=== PATIENT | female | born 1980 | race Caucasian/White ===

== ENCOUNTER 2024-04-30 11:48 | Outpatient (AMB) | payer MEDICAID, SELFPAY ==
[2024-04-30 11:56] VITALS: BP 125/88; PULSE 98; RESP 18; TEMP 36.7; BMI 31.6
--- NOTE | 2024-04-30 11:56 | ORTHONT_ITS ---
Vital signs 04/30/24 11:56 Height 1.7 m Height Method Stated Weight 91.399 kg Weight Measurement Method Standing Scale BMI 31.6 BP 125/88 H Blood Pressure Source Automatic Cuff Blood Pressure Location Right Upper Arm Position Sitting Respiration 18 Pulse 98 Pulse Source Monitor Temp 98.1 F Temp Source Temporal Artery Scan Med/Allergies Allergies & Medications Allergies No Known Allergies Allergy (Verified 04/30/24 12:00) Medication Reconciliation gabapentin 100 mg capsule 100 mg PO QDAY 07/25/23 [History Confirmed 04/30/24] meloxicam 15 mg tablet 15 mg PO QDAY 07/25/23 [History Confirmed 04/30/24] metformin 500 mg tablet 500 mg PO QDAY 07/25/23 [History Confirmed 04/30/24] diclofenac sodium 1 % topical gel 4 g topical QID #100 grams 08/01/23 [Rx Confirmed 04/30/24] Subjective Visit Visit for: follow up visit, knee (BILATERAL) and injections Immunization / Flu Flu Vaccine in the Last 12 Months: No Flu Vaccine Exclusion Criteria: Refused by Patient History of Present Illness Chief complaint: BILATERAL KNEE INJECTION/FOLLOW UP Carolyn is a pleasant 43-year-old female with left knee pain. She has had knee pain for quite a while in both knees with the left being worse than the right. She did have a history of a femur fracture on the left side. She does have a chronic medial meniscus tear as well. He was found to have osteoarthritis and was sent here for evaluation of a partial knee replacement. She does have pain diffusely on both knees. She did well with her last injections. She does not want new injections today Personal History Occupation: shift supervisor film processing Hobbies: working out Red flag PMH: smoker (NON-SMOKER) Pain Pain level (0-10): 6 Pain duration: ALL DAY Pain location: inside (medial), outside (lateral), anterior and posterior Pain quality: sharp and aching Pain timing: night and increases with activity Associated signs & symptoms: weakness Ambulatory data Ambulatory device: none Treatments Number of previous injections: 2 Improvement with previous injections: Yes Improvement with PT: No Improvement with NSAIDS: no Review of Systems Review of Systems: All systems negative unless otherwise noted in HPI. Exam Exam Patient is in no acute distress and is cooperative with the examination today. Breathing is nonlabored. In no respiratory distress. Bilateral extremities were evaluated and demonstrates sensation intact to light touch. Palpable pedal pulses are present. No significant edema is present. Bilateral hips were examined. The patient has no pain with log roll of the hips. Internal rotation to 30 degrees and external rotation to 30 degrees is painless. Negative FADIR. The left knee was examined. The left knee is in [varus] alignment. Range of motion from [0-115] degrees. Knee is stable to varus and valgus as well as AP translation with <5mm. Patient has a [negative] McMurrays. There is [no] pain with patellofemoral compression and [no] crepitus noted. The knee is [tender] to palpation [medially]. The right knee was also examined. The right knee is in [varus] alignment. Range of motion from [0-120] degrees. Knee is stable to varus and valgus as well as AP translation with <5mm. Patient has a [negative] McMurrays. There is [no] pain with patellofemoral compression and [no] crepitus noted. The knee is [tender] to palpation [medially] And laterally Xrays demonstrate severe osteoarthritis and complete obliteration medial joint space Assessment and Plan Problem List (1) Bilateral primary osteoarthritis of knee: Status: Acute Plan: Patient is a pleasant 43-year-old female with posttraumatic arthritis of the left knee and also severe osteoarthritis on the right. Recommend knee cortisone injections as patient would like to proceed with conservative treatment at this time. The risks and benefits of the procedure were reviewed with the patient and patient gave verbal consent to continue with the procedure. Procedure: performed by Dr. Stanton Using sterile technique the Bilateral knees were thoroughly prepped with alcohol, and approximately 1 cc of Kenalog 40 mg/mL and 4 cc of 1% lidocaine was injected into each knee without resistance into the medial tibial femoral joint space. The patient tolerated the procedure. (2) Bilateral knee pain: Status: Acute Office Procedures GNS Level of Care Nursing/Assessment Patient Status: Established Patient Nursing Assessment/Reassesment: Medication Reconciliation, Update PMH in EMR and Vital Signs Coordination of Care: Complex Care and Chronic Disease 1-5, Education Complex Pt/Fam, Consent,records obtained, informed consent, 1 Ins Authorization, Results/Orders obtained and Staff clarify orders Established Patient Charge Established Patient Point Assignment: 110 Established Patient Point Charge: EP Level 3 (80-115) Surgical Proc/IM SQ injection Major Surgical Procedure: Yes (BILATERAL KNEE INJECTION) Medication Given Medication Given Medication Given: Yes Documented Dose Given: 8 Route: Infiitration Medication Given Medication Given Medication Given: Yes Documented Dose Given: 2 Route: Infiitration Office Meds Xylocaine 10 mg/mL (1 %) injection solution Performing Provider: Elver Stanton MD Performing Location: [facility] Administered by: Elver Stanton MD on 04/30/24 12:07 Dose Route Admin Location Dispensed Lot Number Expiration Date [facility] [employer] 40 mL Infiltration 40 mL [id number] 02/26/27 46621-420-17 [facility] triamcinolone acetonide 40 mg/mL suspension for injection Performing Provider: Elver Stanton MD Performing Location: [facility] Administered by: Elver Stanton MD on 04/30/24 12:07 Dose Route Admin Location Dispensed Lot Number Expiration Date [facility] [employer] 80 mg Infiltration 2 mL [id number] 01/26/26 [address]-9 [employer] Past Medical History Past Medical History Have you ever been diagnosed with any of the following: Respiratory Problems Smoking: No Smoking Exposure: No
== END 2024-04-30 12:07 | disposition home or self-care (01) ==
LOC: HODSRG 11:48
PROVIDERS: PCP Registered Nurse; Referring Provider Registered Nurse; Supervising Provider Orthopaedic Surgery Adult Reconstructive Orthopaedic Surgery; Visit Provider Orthopaedic Surgery Adult Reconstructive Orthopaedic Surgery
DX: M17.0 Bilateral primary osteoarthritis of knee (principal); M25.561 Pain in right knee; M25.562 Pain in left knee
CPT/HCPCS: 20610; 99213; J3301; J3490; G0463

== ENCOUNTER 2024-10-28 09:29 | Outpatient (AMB) | payer MEDICAID, SELFPAY ==
[2024-10-28 09:46] VITALS: BP 115/82; PULSE 85; RESP 18; TEMP 36.3; O2SAT 94; BMI 28.1
--- NOTE | 2024-10-28 09:46 | PD.ORTHCLVIS ---
Vital signs 10/28/24 09:46 Height 1.7 m Height Method Stated Weight 81.335 kg Weight Measurement Method Standing Scale BMI 28.1 BP 115/82 Blood Pressure Source Automatic Cuff Blood Pressure Location Left Upper Arm Position Sitting Respiration 18 Pulse 85 Pulse Source Monitor Temp 97.4 F Temp Source Temporal Artery Scan Pulse Oximetry (%) 94 L Oxygen Delivery Method Room Air Med/Allergies Allergies & Medications Allergies No Known Allergies Allergy (Verified 10/28/24 09:47) Medication Reconciliation gabapentin 100 mg capsule 100 mg PO QDAY 07/25/23 [History Confirmed 10/28/24] meloxicam 15 mg tablet 15 mg PO QDAY 07/25/23 [History Confirmed 10/28/24] metformin 500 mg tablet 500 mg PO QDAY 07/25/23 [History Confirmed 10/28/24] diclofenac sodium 1 % topical gel 4 g topical QID #100 grams 10/28/24 [Rx] Exam Exam Patient is in no acute distress and is cooperative with the examination today. Breathing is nonlabored. In no respiratory distress. Bilateral extremities were evaluated and demonstrates sensation intact to light touch. Palpable pedal pulses are present. No significant edema is present. Bilateral hips were examined. The patient has no pain with log roll of the hips. Internal rotation to 30 degrees and external rotation to 30 degrees is painless. Negative FADIR. The left knee was examined. The left knee is in [varus] alignment. Range of motion from [0-115] degrees. Knee is stable to varus and valgus as well as AP translation with <5mm. Patient has a [negative] McMurrays. There is [no] pain with patellofemoral compression and [no] crepitus noted. The knee is [tender] to palpation [medially]. The right knee was also examined. The right knee is in [varus] alignment. Range of motion from [0-120] degrees. Knee is stable to varus and valgus as well as AP translation with <5mm. Patient has a [negative] McMurrays. There is [no] pain with patellofemoral compression and [no] crepitus noted. The knee is [tender] to palpation [medially] And laterally Xrays demonstrate severe osteoarthritis and complete obliteration medial joint space Assessment and Plan Problem List (1) Bilateral primary osteoarthritis of knee: Status: Acute Plan: Patient is a pleasant 43-year-old female with posttraumatic arthritis of the left knee and also severe osteoarthritis on the right. She isStill doing well after cortisone injection. She does not need a new injection As it is still working. She has lost quite a bit of weight since we last saw her (2) Bilateral knee pain: Status: Acute Office Procedures GNS Level of Care Nursing/Assessment Patient Status: Established Patient Nursing Assessment/Reassesment: Medication Reconciliation, Update PMH in EMR and Vital Signs Coordination of Care: Complex Care and Chronic Disease 1-5, Education Complex Pt/Fam, Consent,records obtained, informed consent, Results/Orders obtained and Staff clarify orders Established Patient Charge Established Patient Point Assignment: 95 Established Patient Point Charge: EP Level 3 (80-115) MA Intake Visit Data Collection New Patient or Established: Established Patient (seen at [facility] within 3 years) Reason for Visit:: BILATERAL KNEE INJECTION FOLLOW UP Seen by Clinical Staff ONLY (RN/MA): No PCP or OBGYN visit in last 3 months: Yes Hx Now: No Do You Feel Safe at Home: Yes Authorities Contacted: N/A Questionairres Past Medical History Past Medical History Have you ever been diagnosed with any of the following: Respiratory Problems Smoking: No Smoking Exposure: No Subjective Visit Visit for: follow up visit, knee and injections Immunization / Flu Flu Vaccine in the Last 12 Months: No Flu Vaccine Exclusion Criteria: No Exclusion Criteria History of Present Illness Chief complaint: bl knee pain Carolyn is a pleasant 43-year-old female with left knee pain. She has had knee pain for quite a while in both knees with the left being worse than the right. She did have a history of a femur fracture on the left side. She does have a chronic medial meniscus tear as well. She does have pain diffusely on both knees. She did well with her last injections. She reports the injections are still working Personal History Hobbies: WORK OUT Pain Pain level (0-10): 0 Ambulatory data Ambulatory device: none Treatments Improvement with previous injections: No Improvement with PT: No Improvement with NSAIDS: no Review of Systems Review of Systems: All systems negative unless otherwise noted in HPI.
== END 2024-10-28 09:54 | disposition home or self-care (01) ==
LOC: HODSRG 09:29
PROVIDERS: PCP Registered Nurse; Referring Provider Registered Nurse; Supervising Provider Orthopaedic Surgery Adult Reconstructive Orthopaedic Surgery; Visit Provider Orthopaedic Surgery Adult Reconstructive Orthopaedic Surgery
DX: M17.0 Bilateral primary osteoarthritis of knee (principal); M25.562 Pain in left knee; M25.561 Pain in right knee; S83.249D Other tear of medial meniscus, current injury, unspecified knee, subsequent encounter; X58.XXXD Exposure to other specified factors, subsequent encounter
CPT/HCPCS: 99213; G0463

== ENCOUNTER 2025-05-03 14:46 | Outpatient (AMB) | payer MEDICAID, SELFPAY ==
--- NOTE | 2025-05-03 15:14 | PD.ORTHCLVIS ---
Vital signs 05/03/25 15:18 Height 1.7 m Height Method Measured Weight 84 kg Weight Measurement Method Standing Scale BMI 29.0 BP 114/75 Blood Pressure Source Automatic Cuff Blood Pressure Location Left Upper Arm Position Sitting Respiration 18 Pulse 79 Pulse Source Monitor Temp 97.5 F Temp Source Temporal Artery Scan Pulse Oximetry (%) 97 Oxygen Delivery Method Room Air Med/Allergies Allergies & Medications Allergies No Known Allergies Allergy (Verified 05/03/25 15:18) Medication Reconciliation gabapentin 100 mg capsule 100 mg PO QDAY 07/25/23 [History Confirmed 05/03/25] meloxicam 15 mg tablet 15 mg PO QDAY 07/25/23 [History Confirmed 05/03/25] metformin 500 mg tablet 500 mg PO QDAY 07/25/23 [History Confirmed 05/03/25] diclofenac sodium 1 % topical gel 4 g topical QID #100 grams 10/28/24 [Rx Confirmed 05/03/25] meloxicam 7.5 mg tablet 7.5 mg PO BID #60 tabs 05/03/25 [Rx] Exam Exam Patient is in no acute distress and is cooperative with the examination today. Breathing is nonlabored. In no respiratory distress. Bilateral extremities were evaluated and demonstrates sensation intact to light touch. Palpable pedal pulses are present. No significant edema is present. Bilateral hips were examined. The patient has no pain with log roll of the hips. Internal rotation to 30 degrees and external rotation to 30 degrees is painless. Negative FADIR. The left knee was examined. The left knee is in [varus] alignment. Range of motion from [0-115] degrees. Knee is stable to varus and valgus as well as AP translation with <5mm. Patient has a [negative] McMurrays. There is [no] pain with patellofemoral compression and [no] crepitus noted. The knee is [tender] to palpation [medially]. The right knee was also examined. The right knee is in [varus] alignment. Range of motion from [0-120] degrees. Knee is stable to varus and valgus as well as AP translation with <5mm. Patient has a [negative] McMurrays. There is [no] pain with patellofemoral compression and [no] crepitus noted. The knee is [tender] to palpation [medially] And laterally Xrays demonstrate severe osteoarthritis and complete obliteration medial joint space. There is a femoral nita on the left. Assessment and Plan Problem List (1) Bilateral primary osteoarthritis of knee: Status: Acute Plan: Patient is a pleasant 43-year-old female with posttraumatic arthritis of the left knee and also severe osteoarthritis on the right. She isStill doing well after cortisone injection. She does not need a new injection As it is still working. She has lost quite a bit of weight since we last saw her recommend knee cortisone injection as patient would like to proceed with conservative treatment at this time. The risks and benefits of the procedure were reviewed with the patient and patient gave verbal consent to continue with the procedure. Procedure: performed by Dr. Stanton Using sterile technique the Right knee was thoroughly prepped with alcohol, and approximately 1 cc of Depo-Medrol 80mg/mL and 4 cc of 0.2% ropivacaine was injected without resistance into the medial tibial femoral joint space. The patient tolerated the procedure. Recommend knee cortisone injection as patient would like to proceed with conservative treatment at this time. The risks and benefits of the procedure were reviewed with the patient and patient gave verbal consent to continue with the procedure. Procedure: performed by Dr. Stanton Using sterile technique the leftknee was thoroughly prepped with alcohol, and approximately 1 cc of Depo-Medrol 80mg/mL and 4 cc of 0.2% ropivacaine was injected without resistance into the medial tibial femoral joint space. The patient tolerated the procedure. (2) Bilateral knee pain: Status: Acute Office Procedures GNS Level of Care Nursing/Assessment Patient Status: Established Patient Nursing Assessment/Reassesment: Medication Reconciliation, Update PMH in EMR and Vital Signs Coordination of Care: Complex Care and Chronic Disease 1-5, Education Complex Pt/Fam, Consent,records obtained, informed consent, Results/Orders obtained and Staff clarify orders Established Patient Charge Established Patient Point Assignment: 95 Established Patient Point Charge: EP Level 3 (80-115) Surgical Proc/IM SQ injection Minor Surgical Procedure: Yes (KNEE INJECTION ) Medication Given Medication Given Medication Given: Yes Documented Dose Given: 1 Route: Infiitration Medication Given Medication Given Medication Given: Yes Documented Dose Given: 8 Route: Infiitration Office Meds methylprednisolone acetate 80 mg/mL suspension for injection Performing Provider: Elver Stanton MD Performing Location: [facility] Administered by: Elver Stanton MD on 05/03/25 15:46 Dose Route Admin Location Dispensed Lot Number Expiration Date Package [facility] [employer] 160 mg intra-articular KNEE 2 mL [id number] 01/27/27 [address]-0 [id number] [employer] ropivacaine (PF) 2 mg/mL (0.2 %) injection solution Performing Provider: Elver Stanton MD Performing Location: [facility] Administered by: Elver Stanton MD on 05/03/25 15:46 Dose Route Admin Location Dispensed Lot Number Expiration Date Package [facility] [employer] 40 mL Infiltration KNEE 40 mL [id number] 07/30/27 14970-507-28 [id number] [facility] Intake Visit Data Collection New Patient or Established: Established Patient (seen at [facility] within 3 years) Reason for Visit:: BILATERAL HIP/KNEE PAIN Seen by Clinical Staff ONLY (RN/MA): No Animation Director Required: No PCP or OBGYN visit in last 3 months: Yes Hx Now: No Do You Feel Safe at Home: Yes Authorities Contacted: N/A Questionairres Past Medical History Past Medical History Have you ever been diagnosed with any of the following: Respiratory Problems Smoking: No Smoking Exposure: No Subjective Visit Visit for: follow up visit, hip and knee Immunization / Flu Flu Vaccine in the Last 12 Months: No Flu Vaccine Exclusion Criteria: No Exclusion Criteria History of Present Illness Chief complaint: BILATERAL KNEE/HIP PAIN Carolyn is a pleasant 43-year-old female with left knee pain. She has had knee pain for quite a while in both knees with the left being worse than the right. She did have a history of a femur fracture on the left side. She does have a chronic medial meniscus tear as well. She does have pain diffusely on both knees. She did well with her last injections. She reports the injections are still working Personal History Hobbies: WORK OUT Pain Pain level (0-10): 0 Ambulatory data Ambulatory device: none Treatments Improvement with previous injections: No Improvement with PT: No Improvement with NSAIDS: no Review of Systems Review of Systems: All systems negative unless otherwise noted in HPI.
[2025-05-03 15:18] VITALS: BP 114/75; PULSE 79; RESP 18; TEMP 36.4; O2SAT 97; BMI 29.0
== END 2025-05-03 15:40 | disposition home or self-care (01) ==
LOC: HODSRG 14:46
PROVIDERS: PCP Registered Nurse; Referring Provider Registered Nurse; Supervising Provider Orthopaedic Surgery Adult Reconstructive Orthopaedic Surgery; Visit Provider Orthopaedic Surgery Adult Reconstructive Orthopaedic Surgery
DX: M25.562 Pain in left knee (principal); M25.561 Pain in right knee; M17.0 Bilateral primary osteoarthritis of knee; S83.249D Other tear of medial meniscus, current injury, unspecified knee, subsequent encounter; X58.XXXD Exposure to other specified factors, subsequent encounter
CPT/HCPCS: 20610; 99213; J1010; J2795; G0463